=== PATIENT | female | born 1930 | race Caucasian/White ===

== ENCOUNTER 2016-09-12 14:16 | Emergency (ER) | payer MEDICARE ==
[2016-09-12 14:07] LABS: URINE SOURCE CLEAN CATCH
[2016-09-12 14:12] LABS: URINE APPEARANCE CLEAR; URINE BILIRUBIN NEG (NEG); URINE BLOOD NEG (NEG); URINE COLOR YELLOW; URINE GLUCOSE NEG (NEG); URINE KETONE TRACE (NEG); URINE LEUKOCYTE ESTERASE 1+ (NEG); URINE NITRATE NEG (NEG); URINE PH 5.5 (5-8); URINE PROTEIN NEG (NEG); URINE SPECIFIC GRAVITY 1.022 (1.003-1.035); URINE UROBILINOGEN 0.2 MG/DL (NEG)
[2016-09-12 14:14] LABS: CULTURE INDICATED? NO; URINE BACTERIA AUWI NEG (NEGATIVE); URINE SQUAMOUS EPITHELIAL CELL OCC /[HPF]
[~2016-09-12 14:16] MED LIST: ACETAMINOPHEN PO; ALDACTAZIDE 25/1 TAB PO; AMLODIPINE BESY10 MG PO; ATENOLOL PO; BACTRIM DS TABL1 TA1 PO; BENADRYL25 MG PO; CARDURA PO; CARDURA4 M1 PO; CIPRO PO; CLONIDINE HCL0.1 MG PO; COLACE PO; DILANTIN PO; DILANTIN-1100 MG/4 M PO; HCTZ PO; HYDROXYZINE HCL25 M1 PO; KEFLEX500 M1 PO; KEFLEX500 MG PO; KEPPRA500 M1 PO; KEPPRA500 M2 PO; KEPPRA500 MG PO; LISINOPRIL20 MG PO; LOVASTATIN20 M2 PO; LOVASTATIN20 MG PO; MEDROL4 MG/DOSE- PO; MICRO-K PO; MICRO-K10 MEQ PO; NORVASC10 MG PO; NYSTATIN15 GM OINT EXT; PREDNISONE PO; PYRIDIUM PO; TERBINAFINE (L250 M1 PO; TRIAMCINOLONE AC1 GM EXT; ZYRTEC10 M2 PO
== END 2016-09-12 14:30 | disposition home or self-care (01) ==
LOC: CED 14:16
PROVIDERS: Student in an Organized Health Care Education/Training Program
DX: R10.9 Unspecified abdominal pain (principal); I10 Essential (primary) hypertension
CPT/HCPCS: 81003; 99284

== ENCOUNTER 2016-09-15 13:20 | Emergency (ER) | payer MEDICARE ==
[2016-09-15 11:48] LABS: URINE SOURCE CLEAN CATCH
[2016-09-15 11:58] LABS: URINE APPEARANCE CLOUDY; URINE BILIRUBIN NEG (NEG); URINE BLOOD NEG (NEG); URINE COLOR DK YELLOW; URINE GLUCOSE NEG (NEG); URINE KETONE TRACE (NEG); URINE LEUKOCYTE ESTERASE 3+ (NEG); URINE NITRATE NEG (NEG); URINE PROTEIN 2+ (NEG); URINE SPECIFIC GRAVITY 1.024 (1.003-1.035); URINE UROBILINOGEN 0.2 MG/DL (NEG)
[2016-09-15 12:00] LABS: BASOPHIL% 0.7 % (0-2.5); EOSINOPHIL# 0.1 X10e3 (0-0.7); EOSINOPHIL% 1.1 % (0.0-7.0); HEMATOCRIT 37.8 % (35.0-45.0); HEMOGLOBIN 12.3 gm/dL (12.0-16.0); LYMPHOCYTE# 1.3 X10e3 (1.0-3.5); LYMPHOCYTE% 18.7 % (17.0-45.0); MEAN CELL VOLUME 87.8 FL (83-96); MEAN CORPUSCULAR HEMOGLOBIN 28.6 PG (28-34); MEAN CORPUSCULAR HGB CONC 32.5 g/dL (30-36); MEAN PLATELET VOLUME 8.4 FL (6.5-11.5); MONOCYTE# 0.5 X10e3 (0-1.0); NEUTROPHIL# 4.8 X10e3 (1.5-7.1); NEUTROPHIL% 71.5 % (40-75); PLATELET COUNT 156 X10e3 (140-420); RED BLOOD COUNT 4.31 X10e (3.90-5.30); RED CELL DISTRIBUTION WIDTH 14.4 % (11.0-15.5); WHITE BLOOD COUNT 6.8 X10e3 (4.0-10.5)
[2016-09-15 12:02] LABS: CULTURE INDICATED? YES; URINE BACTERIA AUWI NEG (NEGATIVE)
[2016-09-15 12:05] LABS: DIFF IND NO
[2016-09-15 12:18] LABS: URBCS1 AUWI 0-2 /[HPF] (0-2)
[2016-09-15 12:20] LABS: URINE SQUAMOUS EPITHELIAL CELL FEW /[HPF]
[2016-09-15 12:36] LABS: ALBUMIN SERUM 4.3 g/dL (3.5-5.0); BILIRUBIN, DIRECT 0.1 mg/dL (0.0-0.2); BILIRUBIN,INDIRECT 0.4 mg/dL (0.0-0.9); BILIRUBIN,TOTAL 0.5 mg/dL (0.2-2.0); BUN/CREATININE RATIO 13.07; CALCIUM SERUM 9.4 mg/dL (8.4-10.2); CREATININE SERUM 1.3 mg/dL (0.6-1.4); GLOM FILT RATE Estimated 41.3 mL/min (>60); POTASSIUM 3.4 mmol/L (3.5-5.1)
== END 2016-09-15 14:10 | disposition home or self-care (01) ==
LOC: CED 13:20
PROVIDERS: Student in an Organized Health Care Education/Training Program
DX: N30.00 Acute cystitis without hematuria (principal); E87.6 Hypokalemia; I10 Essential (primary) hypertension; Z86.79 Personal history of other diseases of the circulatory system
CPT/HCPCS: 36415; 80048; 80076; 81003; 83690; 85025; 87086; 99284

== ENCOUNTER 2016-09-20 08:40 | Emergency (ER) | payer MEDICARE, OTHER ==
--- NOTE | ~2016-09-20 | CT4 ---
[facility] A Service of [facility] RADIOLOGY TEXT RESULTS PATIENT: ROBERT ESPARZA LOCATION: [facility] : 30 UNIT #: [id number] AGE: [address]: Denny Moore MD SEX: F ORDER DR: [id number] [facility] [address] [place], [place] [address] [id number] E MR#: [id number] Acc #: [id number] NAME: ROBERT ESPARZA. : 1930 SEX: F STUDY DATE/TIME: 09/20/2016 9:05 UNIT: [facility] ROOM: STUDY DESCRIPTION: CT Abd and Pelv Wo Cont Attending Physician: Denny Moore M.D. Ordering Physician: Denny Moore M.D. [facility] REPORT This report is preliminary unless electronic signature is present EXAM CT scan of the abdomen and pelvis without contrast INDICATIONS Left flank pain. Low back pain since last night. COMPARISON 08/25/2016. TECHNIQUE Axial 3 mm images were obtained through the abdomen and pelvis without IV or oral contrast. This CT exam was performed with one or more of the following radiation dose reduction techniques: automatic control, adjustment of mA and/or kV according to patient size, and iterative reconstruction. FINDINGS Lung bases are clear. There is a moderate sized hiatal hernia. The liver, gallbladder, spleen, pancreas, adrenal glands and kidneys are normal. The aorta is normal in size. There is no adenopathy. The bowel including the appendix appears normal. The uterus and adnexal regions are normal. There is a pessary present. The bladder is normal. The bones show mild degenerative changes. IMPRESSION 1. Negative study. I do not see any cause for the patient's left-sided pain. There is no evidence of diverticulitis or urinary stone. Dictated by... Homer Borjas M.D. THIS IS AN ELECTRONICALLY VERIFIED REPORT Homer Borjas M.D. at 09/21/2016 3:06 PM [facility] A Service of [facility] RADIOLOGY TEXT RESULTS PATIENT: ROBERT ESPARZA [id number] : [birth year] UNIT #: [id number] AGE: [address]: Denny Moore MD SEX: F ORDER DR: WAYLON/phil TD: 09/21/2016 01:26 JOB #: [id number] MEDICAL IMAGING REPORT COPY
[2016-09-20 08:10] LABS: BASOPHIL# 0.1 X10e3 (0-0.3); BASOPHIL% 1.3 % (0-2.5); EOSINOPHIL# 0.1 X10e3 (0-0.7); EOSINOPHIL% 1.8 % (0.0-7.0); HEMATOCRIT 40.6 % (35.0-45.0); LYMPHOCYTE% 24.7 % (17.0-45.0); MEAN CELL VOLUME 87.9 FL (83-96); MEAN CORPUSCULAR HEMOGLOBIN 28.1 PG (28-34); MEAN PLATELET VOLUME 8.5 FL (6.5-11.5); MONOCYTE# 0.4 X10e3 (0-1.0); MONOCYTE% 8.5 % (3.0-12.0); NEUTROPHIL# 2.6 X10e3 (1.5-7.1); NEUTROPHIL% 63.7 % (40-75); PLATELET COUNT 158 X10e3 (140-420); RED BLOOD COUNT 4.62 X10e (3.90-5.30); RED CELL DISTRIBUTION WIDTH 14.5 % (11.0-15.5); WHITE BLOOD COUNT 4.1 X10e3 (4.0-10.5)
[2016-09-20 08:11] LABS: DIFF IND NO
[2016-09-20 08:29] LABS: URINE SOURCE CLEAN CATCH
[2016-09-20 08:38] LABS: URINE APPEARANCE CLEAR; URINE BILIRUBIN NEG (NEG); URINE BLOOD NEG (NEG); URINE COLOR YELLOW; URINE GLUCOSE NEG (NEG); URINE KETONE NEG (NEG); URINE LEUKOCYTE ESTERASE 1+ (NEG); URINE NITRATE NEG (NEG); URINE PROTEIN NEG (NEG); URINE SPECIFIC GRAVITY 1.017 (1.003-1.035); URINE UROBILINOGEN 0.2 MG/DL (NEG)
[2016-09-20 08:40] LABS: BUN/CREATININE RATIO 12.5; CALCIUM SERUM 9.3 mg/dL (8.4-10.2); CREATININE SERUM 1.6 mg/dL (0.6-1.4); GLOM FILT RATE Estimated 32.5 mL/min (>60); POTASSIUM 4.5 mmol/L (3.5-5.1)
[2016-09-20 08:41] LABS: U HYALINE CASTS AUWI 0-2 /[LPF]; URINE BACTERIA AUWI NEG (NEGATIVE); URINE SQUAMOUS EPITHELIAL CELL NONE SEEN /[HPF]
[2016-09-20 08:52] LABS: CULTURE INDICATED? NO
== END 2016-09-20 10:15 | disposition home or self-care (01) ==
LOC: CED 08:40
PROVIDERS: Emergency Medicine
DX: M54.5 Low back pain (principal); I10 Essential (primary) hypertension
CPT/HCPCS: 36415; 74176; 80048; 81003; 85025; 99284

== ENCOUNTER 2016-09-22 09:31 | Emergency (ER) | payer MEDICARE, OTHER ==
[2016-09-22 10:19] LABS: BUN/CREATININE RATIO 15.26; CALCIUM SERUM 9.5 mg/dL (8.4-10.2); CREATININE SERUM 1.9 mg/dL (0.6-1.4); GLOM FILT RATE Estimated 26.6 mL/min (>60); POTASSIUM 4.6 mmol/L (3.5-5.1)
[2016-09-22 11:36] LABS: URINE SOURCE CLEAN CATCH
[2016-09-22 11:44] LABS: URINE APPEARANCE TURBID; URINE BILIRUBIN NEG (NEG); URINE BLOOD NEG (NEG); URINE COLOR YELLOW; URINE GLUCOSE NEG (NEG); URINE KETONE NEG (NEG); URINE LEUKOCYTE ESTERASE 1+ (NEG); URINE NITRATE NEG (NEG); URINE PROTEIN NEG (NEG); URINE SPECIFIC GRAVITY 1.023 (1.003-1.035); URINE UROBILINOGEN 0.2 MG/DL (NEG)
[2016-09-22 11:46] LABS: CULTURE INDICATED? YES; URINE BACTERIA AUWI NEG (NEGATIVE)
[2016-09-22 12:01] LABS: URINE CRYSTALS URIC ACID /[HPF]
[2016-09-22 12:03] LABS: URINE MUCUS PRESENT; URINE SQUAMOUS EPITHELIAL CELL FEW /[HPF]
== END 2016-09-22 12:39 | disposition home or self-care (01) ==
LOC: CED 09:31
PROVIDERS: Physician Assistant Medical
DX: N28.9 Disorder of kidney and ureter, unspecified (principal)
CPT/HCPCS: 36415; 80048; 81003; 87086; 99283